=== PATIENT | female | born 1975 | race Caucasian/White ===

== ENCOUNTER 2016-05-13 09:21 | Emergency (ER) | payer BC ==
[2016-05-13] MEDS ORDERED: NS 0.9% 1000 ML* 1,000 ML IV ONE (10:56)
[2016-05-13] MEDS ORDERED: Ondansetron INJ* 2 MG/ML VIAL IV ONE (10:56)
[2016-05-13] MEDS ORDERED: Ketorolac INJ* 30 MG/ML 1 ML VIAL IV ONE (10:56)
[2016-05-13 11:14] LABS: Hematocrit 36 % (35-47); Hemoglobin 12.1 g/dl (12.0-16.0); Mean Corpuscular HGB Conc 34 g/dl (31-36); Mean Corpuscular Hemoglobin 33 pg (27-31); Mean Corpuscular Volume 96 fL (80-97); Mean Platelet Volume 9 um3 (7.4-10.4); Red Blood Count 3.72 10^6/ul (4.0-5.4); Red Cell Distribution Width 14 % (10.5-15); White Blood Count 4.4 10^3/ul (3.5-10.8)
[2016-05-13 11:18] LABS: Urine Bilirubin Negative (Negative); Urine Glucose Negative (Negative); Urine Nitrite Negative (Negative)
[2016-05-13 11:25] LABS: ALT 15 U/L (7-52); AST 18 U/L (13-39); Albumin 4.1 g/dL (3.2-5.2); Alkaline Phosphatase 37 U/L (34-104); Anion Gap 3 mmol/L (2-11); BUN/Creatinine Ratio 23.8 (8-20); Blood Urea Nitrogen 15 mg/dL (6-24); C Reactive Protein < 1.00 mg/L (< 5.00); CO2 Carbon Dioxide 31 mmol/L (22-32); Calcium 9.1 mg/dL (8.6-10.3); Chloride 102 mmol/L (101-111); EGFR Non-African American 105.8 (>60); Globulin 2.4 g/dL (2-4); Glucose 84 mg/dL (70-100); Lipase 33 U/L (11.0-82.0); Potassium 3.9 mmol/L (3.5-5.0); Sodium 136 mmol/L (133-145); Total Protein 6.5 g/dL (6.4-8.9)
--- NOTE | 2016-05-13 13:43 | RAD ---
INDICATION: Left pelvic pain COMPARISON: Pelvic sonogram November 18, 2011 TECHNIQUE: Longitudinal and transverse transvaginal scans of the pelvis were obtained. FINDINGS: Uterus: The uterus is normal in size. There are no focal masses. The uterus measures 8.0 x 4.7 x 5.3 cm. Endometrial thickness: The endometrial thickness is measured at 0.8 cm. . Free fluid: There is no significant free fluid . Ovaries: The ovaries are normal in size. The right ovary measures 3.6 x 1.4 x 2.4 cm. The left ovary measures 3.7 x 1.8 x 2.3 cm. There is a mildly complex left ovarian cyst measuring 1.9 x 1.6 x 1.4 cm. This may represent an involuting cyst. Doppler interrogation demonstrates flow to each ovary. Other: None IMPRESSION: SUSPECT SMALL INVOLUTING CYST LEFT OVARY, OTHERWISE NEGATIVE.
[2016-05-13] MEDS ORDERED: Acetaminophen TAB* 325 MG PO ONE (14:03)
[2016-05-13 14:57] VITALS: BP 108/67
--- NOTE | 2016-05-13 15:16 | ED ---
Yunior Lucero Billy, scribed for Gómez Causey MD on 05/13/16 at 0953 . Back Pain - HPI Summary HPI Summary: Patient is a 40 year-old female coming to [facility] presenting with constant left lumbar pain starting 4 days ago. She states that she felt a sharp pain at onset while standing, and has been progressively worsening since then. Pain is worse while standing, sitting, or bearing weight on the LLE. The pain has begun to wrap around to the LLQ, and the patient reports N/V this morning. She has been taking ibuprofen for the pain with no improvement. Patient reports tolerating PO during the last few days but has had decreased appetite secondary to nausea this morning. Denies UTI symptoms. Denies changes in bowel movements. - History of Current Complaint Chief Complaint: EDAbdPain Stated Complaint: LT SIDE ABD PAIN / VOMITING Time Seen by Provider: 05/13/16 09:37 Hx Obtained From: Patient Hx Last Menstrual Period: 07/07/12 Onset/Duration: Gradual Onset, Lasting Days, Still Present Timing: Constant Severity Initially: Moderate Severity Currently: Moderate Pain Intensity: 8 Pain Scale Used: 0-10 Numeric Aggravating Symptom(s): Movement, Walking Alleviating Symptom(s): Nothing Associated Signs And Symptoms: Positive: Abdominal Pain, Pain with Weight Bearing, Other - N/V. Negative: Bladder Incontinence, Bowel Incontinence - Allergies/Home Medications Allergies/Adverse Reactions: Allergies Allergy/AdvReac Type Severity Reaction Status Date / Time Citalopram [From Celexa] AdvReac Severe See Comment Verified 05/13/16 10:37 Midodrine AdvReac Severe Palpitation Verified 05/13/16 10:37 s Adhesive Tape [Plastic Tape] AdvReac Intermediate IRRITATES Verified 05/13/16 10 :37 SKIN Benzoyl Peroxide AdvReac Intermediate Pain Verified 05/13/16 10:37 Morphine AdvReac Intermediate Itching Verified 05/13/16 10:37 Naproxen AdvReac Intermediate GI UPSET, Verified 05/13/16 10:37 BURNING Oxycodone [From Percocet] AdvReac Intermediate GI UPSET, Verified 05/13/16 10:37 BURNING terrazol Allergy Intermediate See Comment Uncoded 05/13/16 10:37 PMH/Surg Hx/FS Hx/Imm Hx Endocrine/Hematology History: Reports: Hx Diabetes - GESTATIONAL ONLY Denies: Hx Thyroid Disease Cardiovascular History: Reports: Hx Hypertension - Orthostatic Hypotension, Hx Syncope - Neurocardiogenic syncope Denies: Hx Congestive Heart Failure, Hx Pacemaker/ICD Respiratory History: Reports: Hx Sleep Apnea Denies: Hx Asthma, Hx Chronic Obstructive Pulmonary Disease (COPD) GI History: Reports: Hx Gastroesophageal Reflux Disease Denies: Hx Ulcer History: Reports: Other Problems/Disorders - HSV Denies: Hx Dialysis, Hx Renal Disease Sensory History: Reports: Hx Contacts or Glasses - glasses Denies: Hx Hearing Aid Opthamlomology History: Reports: Hx Contacts or Glasses - glasses Neurological History: Reports: Hx Headaches - hx of optic neuritis 2008, headaches since 1-2 times a week, Hx Migraine, Other Neuro Impairments/ Disorders - occasional dizziness with hungry Denies: Hx Seizures Psychiatric History: Reports: Hx Anxiety - on medication, Hx Depression Denies: Hx Panic Disorder, Hx Substance Abuse - Surgical History Surgery Procedure, Year, and Place: 02/05 [facility] - . 09/07 [facility] - C- section W/TUBAL LIGATION. . gASTRIC SLEEVE AND CHOLECYTECTOMY 2005 Hx Anesthesia Reactions: No - Immunization History Date of Tetanus Vaccine: 2008 Date of Influenza Vaccine: 2012 Infectious Disease History: No Infectious Disease History: Denies: Hx Hepatitis, Hx Human Immunodeficiency Virus (HIV), History Other Infectious Disease, Traveled Outside the [place] in Last 30 Days - Family History Known Family History: Positive: Other - Breast cancer - Social History Alcohol Use: Occasionally Hx Substance Use: No Substance Use Type: Reports: None Hx Tobacco Use: Yes Smoking Status (MU): Former Smoker Review of Systems Positive: Abdominal Pain, Vomiting, Nausea Positive: Other - left lower back pain All Other Systems Reviewed And Are Negative: Yes Physical Exam Triage Information Reviewed: Yes Vital Signs On Initial Exam: Initial Vitals Temp Pulse Resp BP Pulse Ox 98.7 F 82 15 101/58 100 05/13/16 09:23 05/13/16 09:23 05/13/16 09:23 05/13/16 09:23 05/13/16 09:23 Vital Signs Reviewed: Yes Appearance: Positive: Well-Appearing, No Pain Distress Skin: Positive: Warm, Skin Color Reflects Adequate Perfusion, Dry Head/Face: Positive: Normal Head/Face Inspection Eyes: Positive: Normal Neck: Positive: Supple, Nontender Respiratory/Lung Sounds: Positive: Clear to Auscultation, Breath Sounds Present Cardiovascular: Positive: RRR Abdomen Description: Positive: Soft, Other: - LLQ tenderness Musculoskeletal: Positive: Other - Left lumb paraspinal tenderness. Negative straight leg raise. Negative pain with internal/external rotation of the left hip. Neurological: Positive: Normal Psychiatric: Positive: Normal, Affect/Mood Appropriate AVPU Assessment: Alert - Johnie Coma Scale Coma Scale Total: 15 Diagnostics - Vital Signs Vital Signs Temp Pulse Resp BP Pulse Ox 05/13/16 09:23 98.7 F 82 15 101/58 100 - Laboratory Lab Results: Lab Results 05/13/16 05/13/16 05/13/16 Range/Units 10:25 10:25 10:25 WBC 4.4 (3.5-10.8) 10^3/ul RBC 3.72 L (4.0-5.4) 10^6/ul Hgb 12.1 (12.0-16.0) g/dl Hct 36 (35-47) % MCV 96 (80-97) fL MCH 33 H (27-31) pg MCHC 34 (31-36) g/dl RDW 14 (10.5-15) % Plt Count 192 (150-450) 10^3/ul MPV 9 (7.4-10.4) um3 Neut % (Auto) 56.6 (38-83) % Lymph % (Auto) 33.2 (25-47) % [place] % (Auto) 7.5 (1-9) % Eos % (Auto) 2.1 (0-6) % Baso % (Auto) 0.6 (0-2) % Absolute Neuts (auto) 2.5 (1.5-7.7) 10^3/ul Absolute Lymphs (auto) 1.5 (1.0-4.8) 10^3/ul Absolute Monos (auto) 0.3 (0-0.8) 10^3/ul Absolute Eos (auto) 0.1 (0-0.6) 10^3/ul Absolute Basos (auto) 0 (0-0.2) 10^3/ul Absolute Nucleated RBC 0 10^3/ul Nucleated RBC % 0.1 Sodium 136 (133-145) mmol/L Potassium 3.9 (3.5-5.0) mmol/L Chloride 102 (101-111) mmol/L Carbon Dioxide 31 (22-32) mmol/L Anion Gap 3 (2-11) mmol/L BUN 15 (6-24) mg/dL Creatinine 0.63 (0.51-0.95) mg/dL Est GFR ( Amer) 136.0 (>60) Est GFR (Non-Af Amer) 105.8 (>60) BUN/Creatinine Ratio 23.8 H (8-20) Glucose 84 (70-100) mg/dL Lactic Acid (0.5-2.0) mmol/L Calcium 9.1 (8.6-10.3) mg/dL Total Bilirubin 0.50 (0.2-1.0) mg/dL AST 18 (13-39) U/L ALT 15 (7-52) U/L Alkaline Phosphatase 37 (34-104) U/L C-Reactive Protein < 1.00 (< 5.00) mg/L Total Protein 6.5 (6.4-8.9) g/dL Albumin 4.1 (3.2-5.2) g/dL Globulin 2.4 (2-4) g/dL Albumin/Globulin Ratio 1.7 (1-3) Lipase 33 (11.0-82.0) U/L Beta HCG, Quant < 0.60 mIU/mL Urine Color Yellow Urine Appearance Cloudy Urine pH 7.0 (5-9) Ur Specific [place] 1.005 L (1.010-1.030) Urine Protein Negative (Negative) Urine Ketones Negative (Negative) Urine Blood Negative (Negative) Urine Nitrate Negative (Negative) Urine Bilirubin Negative (Negative) Urine Urobilinogen Negative (Negative) Ur Leukocyte Esterase Negative (Negative) Urine Glucose Negative (Negative) 05/13/16 Range/Units 10:25 WBC (3.5-10.8) 10^3/ul RBC (4.0-5.4) 10^6/ul Hgb (12.0-16.0) g/dl Hct (35-47) % MCV (80-97) fL MCH (27-31) pg MCHC (31-36) g/dl RDW (10.5-15) % Plt Count (150-450) 10^3/ul MPV (7.4-10.4) um3 Neut % (Auto) (38-83) % Lymph % (Auto) (25-47) % [place] % (Auto) (1-9) % Eos % (Auto) (0-6) % Baso % (Auto) (0-2) % Absolute Neuts (auto) (1.5-7.7) 10^3/ul Absolute Lymphs (auto) (1.0-4.8) 10^3/ul Absolute Monos (auto) (0-0.8) 10^3/ul Absolute Eos (auto) (0-0.6) 10^3/ul Absolute Basos (auto) (0-0.2) 10^3/ul Absolute Nucleated RBC 10^3/ul Nucleated RBC % Sodium (133-145) mmol/L Potassium (3.5-5.0) mmol/L Chloride (101-111) mmol/L Carbon Dioxide (22-32) mmol/L Anion Gap (2-11) mmol/L BUN (6-24) mg/dL Creatinine (0.51-0.95) mg/dL Est GFR ( Amer) (>60) Est GFR (Non-Af Amer) (>60) BUN/Creatinine Ratio (8-20) Glucose (70-100) mg/dL Lactic Acid 0.6 (0.5-2.0) mmol/L Calcium (8.6-10.3) mg/dL Total Bilirubin (0.2-1.0) mg/dL AST (13-39) U/L ALT (7-52) U/L Alkaline Phosphatase (34-104) U/L C-Reactive Protein (< 5.00) mg/L Total Protein (6.4-8.9) g/dL Albumin (3.2-5.2) g/dL Globulin (2-4) g/dL Albumin/Globulin Ratio (1-3) Lipase (11.0-82.0) U/L Beta HCG, Quant mIU/mL Urine Color Urine Appearance Urine pH (5-9) Ur Specific Tovey (1.010-1.030) Urine Protein (Negative) Urine Ketones (Negative) Urine Blood (Negative) Urine Nitrate (Negative) Urine Bilirubin (Negative) Urine Urobilinogen (Negative) Ur Leukocyte Esterase (Negative) Urine Glucose (Negative) Result Diagrams: 05/13/16 10:25 05/13/16 10:25 Lab Statement: Any lab studies that have been ordered have been reviewed, and results considered in the medical decision making process. - Ultrasound No standard instances Ultrasound Interpretation Completed By: Radiologist - TRANSVAGINAL ULTRASOUND: SUSPECT SMALL INVOLUTING CYST LEFT OVARY, OTHERWISE NEGATIVE. Re-Evaluation - Re-Evaluation First Eval Re-Evaluation Time: 14:21 Change: Improved Back Pain Course/Dx - Course Course Of Treatment: Ms. Sadler presented with a left adnexal pain which radiated into her back/flank. it was constant and aggravated by movement. The pain was present for 3-4 days but she got nauseated today. Her W/U was negative here except for an involuting left ovarian cyst. We discussed the possibility that this has caused her pain and I recommended that she F/U if not improved in the next 1-2 days. - Diagnoses Provider Diagnoses: Ruptured ovarian cyst Discharge - Discharge Plan Condition: Stable Disposition: HOME Patient Education Materials: Ovarian Cyst (ED) Referrals: Katelyn Varner NP [Primary Care Provider] - The documentation as recorded by the Yunior hicks Billy accurately reflects the service I personally performed and the decisions made by me, Gómez Causey MD.
== END 2016-05-13 14:56 | disposition home or self-care (01) ==
LOC: ED 09:21
DX: N83.202 Unspecified ovarian cyst, left side (principal); Z87.891 Personal history of nicotine dependence; Z88.5 Allergy status to narcotic agent
CPT/HCPCS: 36415; 76830; 80053; 81003; 83605; 83690; 84702; 85025; 86140; 99282; A9270-GY; J1885; J2405

== ENCOUNTER 2016-10-02 12:11 | Emergency (ER) | payer BC ==
[2016-10-02 13:07] VITALS: BP 100/55
--- NOTE | 2016-10-02 13:33 | UC ---
Throat Pain/Nasal Juan HPI - HPI Summary HPI Summary: complaint of nasal discahrge, sinus pressure and cough that started 4-5 days ago sore throat, bilateral ear pain headache in entire head feels fatigued diarrhea for the first 2 days cough is sometimes productive cough taking emergency and childrens mucinex both daughters with similiar illness - History of Current Complaint Hx Obtained From: Patient Hx Last Menstrual Period: 09/14/16 <Alona Scott - Last Filed: 10/02/16 13:40> <Gin Moreno - Last Filed: 10/02/16 14:15> - History of Current Complaint Chief Complaint: UCRespiratory Stated Complaint: RESP ISSUE SORE THROAT EAR PAIN Time Seen by Provider: 10/02/16 13:25 - Allergies/Home Medications Allergies/Adverse Reactions: Allergies Allergy/AdvReac Type Severity Reaction Status Date / Time Citalopram [From Celexa] AdvReac Severe See Comment Verified 10/02/16 13:07 Midodrine AdvReac Severe Palpitation Verified 10/02/16 13:07 s Adhesive Tape [Plastic Tape] AdvReac Intermediate IRRITATES Verified 10/02/16 13 :07 SKIN Benzoyl Peroxide AdvReac Intermediate Pain Verified 10/02/16 13:07 Morphine AdvReac Intermediate Itching Verified 10/02/16 13:07 Naproxen AdvReac Intermediate GI UPSET, Verified 10/02/16 13:07 BURNING Oxycodone [From Percocet] AdvReac Intermediate GI UPSET, Verified 10/02/16 13:07 BURNING terrazol Allergy Intermediate See Comment Uncoded 10/02/16 13:07 Home Medications: Home Medications Magnesium 500 mg PO DAILY 10/02/16 [History Confirmed 10/02/16] PMH/Surg Hx/FS Hx/Imm Hx Previously Healthy: Yes GI/ History: Gastroesophageal Reflux Neurological History: Migraine - Surgical History Surgical History: Yes Surgery Procedure, Year, and Place: 02/05 [facility] - . [facility] - [facility]- section W/TUBAL LIGATION. . gASTRIC SLEEVE AND CHOLECYTECTOMY 2005 - Family History Known Family History: Positive: Unknown, Other - Breast cancer Negative: Hypertension, Diabetes - Social History Occupation: Employed Full-time Lives: With Family Alcohol Use: Occasionally Substance Use Type: None Smoking Status (MU): Former Smoker - Immunization History Most Recent Influenza Vaccination: 2011 Most Recent Tetanus Shot: 2004 <Alona Scott - Last Filed: 10/02/16 13:40> Review of Systems Constitutional: Fever, Chills Skin: Negative Eyes: Negative ENT: Sore Throat, Ear Ache, Nasal Discharge Respiratory: Cough Cardiovascular: Negative Gastrointestinal: Negative Genitourinary: Negative Motor: Negative Neurovascular: Negative Musculoskeletal: Negative Neurological: Headache Psychological: Negative All Other Systems Reviewed And Are Negative: Yes <Alona Scott - Last Filed: 10/02/16 13:40> Physical Exam Triage Information Reviewed: Yes Appearance: No Pain Distress, Well-Nourished Vital Signs: Initial Vital Signs Temp 98.0 F 10/02/16 13:01 Pulse 75 10/02/16 13:01 Resp 18 10/02/16 13:01 BP 100/55 10/02/16 13:01 Pulse Ox 97 10/02/16 13:01 Vital Signs Reviewed: Yes Eyes: Positive: Conjunctiva Clear ENT: Positive: Pharyngeal erythema, Nasal congestion, Nasal drainage, TM bulging. Negative: TM red Neck: Positive: No Lymphadenopathy Respiratory: Positive: Lungs clear, Normal breath sounds, No respiratory distress, No accessory muscle use Cardiovascular: Positive: RRR, No Murmur, Pulses Normal, Brisk Capillary Refill Abdomen Description: Positive: Nontender, Soft Bowel Sounds: Positive: Present Musculoskeletal: Positive: No Edema Neurological: Positive: Alert Psychological Exam: Normal Skin Exam: Normal <Alona Scott - Last Filed: 10/02/16 13:40> Vital Signs: Initial Vital Signs Temp 98.0 F 10/02/16 13:01 Pulse 75 10/02/16 13:01 Resp 18 10/02/16 13:01 BP 100/55 10/02/16 13:01 Pulse Ox 97 10/02/16 13:01 <Gin Moreno - Last Filed: 10/02/16 14:15> Throat Pain/Nasal Course/Dx - Differential Dx/Diagnosis Differential Diagnosis/HQI/PQRI: Pharyngitis, Tonsillitis, URI Provider Diagnoses: URI <Alona Scott - Last Filed: 10/02/16 13:40> Discharge <Alona Scott - Last Filed: 10/02/16 13:40> <Gin Moreno - Last Filed: 10/02/16 14:15> - Discharge Plan Condition: Stable Disposition: HOME Prescriptions: Benzonatate CAP* [Tessalon 100 MG CAP*] 100 mg PO TID #30 cap Fluticasone NASAL SPRAY 50MCG* [Flonase NASAL SPRAY 50MCG*] 2 spray BOTH NARES DAILY #1 btl Patient Education Materials: Upper Respiratory Infection (ED) Forms: *Work Release Referrals: Katelyn Varner NP [Primary Care Provider] - Additional Instructions: Increase fluids and rest Take acetaminophen or ibuprofen for fever or pain Please review your discharge instructions. If your symptoms do not improve please call your primary care provider or return to urgent care. Attestation Statement User Type: Provider - I was available for consult. This patient was seen by the BRITTANY. The patient was not presented to, seen by, or examined by me. -[place] <Gin Moreno - Last Filed: 10/02/16 14:15>
== END 2016-10-02 13:46 | disposition home or self-care (01) ==
LOC: UCEAST 12:11
DX: J06.9 Acute upper respiratory infection, unspecified (principal); Z87.891 Personal history of nicotine dependence
CPT/HCPCS: 99212; G0463

== ENCOUNTER 2017-05-15 11:02 | Day surgery (SDC) | payer BC ==
[~2017-05-15 11:02] MED LIST: Buffered Lidocaine 0.9% SYRIN* 5 ML/SYR SYRINGE INTRADERM ONE; Buffered Lidocaine 0.9% SYRIN* 5 ML/SYR SYRINGE ONE
[2017-05-15] MEDS ORDERED: Metoclopramide IV* 5 MG/ML 2 ML VIAL IV PRN (12:50)
[2017-05-15] MEDS ORDERED: Naloxone* 0.4 MG/ML 1 ML VIAL IV PRN (12:50)
[2017-05-15] MEDS ORDERED: Acetaminophen TAB* 325 MG PO PRN (12:50)
[2017-05-15] MEDS ORDERED: fentaNYL* 50 MCG/ML 2 ML VIAL (100 MCG VIAL) ONE (12:57)
[2017-05-15] MEDS ORDERED: Midazolam concentrated* 5 MG/ML 1 ml VIAL ONE (12:57)
[2017-05-15] MEDS ORDERED: Ondansetron INJ* 2 MG/ML VIAL ONE (14:09)
[2017-05-15] MEDS ORDERED: Lidocaine 2% PF * 5 ML VIAL ONE (14:09)
[2017-05-15] MEDS ORDERED: Propofol* 10 MG/ML 20 ML BTL IV PUSH ONE ×2 (14:09)
[2017-05-15] MEDS ORDERED: Ketorolac INJ* 30 MG/ML 1 ML VIAL ONE (14:09)
[2017-05-15 15:13] VITALS: BP 112/65
[2017-05-15] MEDS ORDERED: Bupivacaine 0.25% SDV* 30 ML ONE (15:21)
--- NOTE | 2017-05-18 09:18 | OP ---
DATE OF OPERATION: 05/15/17 - [facility] DATE OF : 79 SURGEON: Jericho Carlos MD. ASSISTANTS: GAVIN Green. ANESTHESIOLOGIST: Jessie Boateng MD ANESTHESIA: General. PRE-OP DIAGNOSES: 1. Left volar wrist ganglion cyst. 2. Left carpal tunnel syndrome. POST-OP DIAGNOSES: 1. Left volar wrist ganglion cyst. 2. Left carpal tunnel syndrome. OPERATIVE PROCEDURES: 1. Left open carpal tunnel release. 2. Excision of left volar wrist ganglion cyst. INDICATIONS: Marie is 41. She has had progressive symptoms related to carpal tunnel syndrome. Additionally, she had a volar wrist ganglion cyst, which is causing her quite a bit of discomfort with flexion and extension of the wrist. I have talked her about her treatment option. She had wanted to proceed with surgery. She understood the risks and benefits including the risk of cyst recurrence. ESTIMATED BLOOD LOSS: 2 mL. COMPLICATIONS: None. FINDINGS: There was a volar wrist ganglion cyst coming off of the volar wrist capsule just over the volar aspect of the scapholunate joint. DESCRIPTION OF PROCEDURE: Marie was seen in the preoperative holding area. The correct side, site and the procedure were identified. We came back to the operating room. We had a time out time-out. I infiltrated the operative area with 0.25% plain Marcaine. The arm was then prepped and draped in the usual fashion. I began by exsanguinating the arm with the Esmarch and the tourniquet was inflated to 250 mmHg. I made a 3 cm incision in the standard location for an open carpal tunnel release. Dissection was carried down to the subcutaneous tissue and palmar fascia. The transverse carpal transverse carpal ligament was released just off the radial aspect of hook of the hamate. The release was extended distally and proximally with tenotomy scissors under direct visualization. Once the entirety of the transverse carpal ligament had been released as well as the distal end of the antebrachial fascia, there was absolutely no compression on the median nerve. I went ahead and irrigated out the wounds. The skin was closed with 4-0 nylon suture. I then made a lazy S incision right over the volar radial cyst over the ganglion cyst. Dissection was carried down to the cyst. I came proximally and identified the radial artery, which was draping over the volar radial aspect of the cyst. The radial artery was mobilized and the perforators cauterized to mobilize the artery. Once the artery was mobilized and retracted radially I went ahead and a marginal excision of the cyst. The cyst was kept intact as I dissected it free until I identified the stalk where it came off of the the volar capsule just off the volar aspect of the scapholunate joint. The cyst was then amputated at that site and the tract for the cyst was cauterized with the Bovie as was the remainder of the volar wrist capsule. The wound was then irrigated out. The skin was closed with 4-0 nylon suture. The wounds were dressed with Xeroform, 4x4s, sterile Webril and a cock-up wrist splint was applied. She was then taken to the recovery room in stable condition. [id number]/CPS #: [id number] RONNIE
== END 2017-05-15 15:30 | disposition home or self-care (01) ==
LOC: OREAST 11:02
PROVIDERS: ATTEND Orthopaedic Surgery Hand Surgery
DX: M67.432 Ganglion, left wrist (principal); G56.02 Carpal tunnel syndrome, left upper limb; Z87.891 Personal history of nicotine dependence; F41.8 Other specified anxiety disorders; I95.1 Orthostatic hypotension; R55 Syncope and collapse; R00.2 Palpitations; R00.0 Tachycardia, unspecified
CPT/HCPCS: 88304; J1885; J2250; J2405; J2704; J3010

== ENCOUNTER 2017-06-06 05:43 | Emergency (ER) | payer BC, OTHER ==
[2017-06-06] MEDS ORDERED: Tenofovir/Emtricitabine(*) TAB PO ONE ×2 (06:15→09:00)
[2017-06-06] MEDS ORDERED: Ondansetron ODT TAB* 4 MG PO ONE (06:15)
[2017-06-06] MEDS ORDERED: Raltegravir* 400 MG TAB PO ONE ×2 (06:15→09:00)
--- OUTSIDE RECORDS SUMMARY | 2017-06-06 06:19 | XMS REPORT ---
:1975 External Reference #:[id number] Author Organization [employer] [facility] [employer] Address [address] [address] Phone [phone] Care Team Providers Name Role Phone Katleyn Varner FNP Primary Care Physician Unavailable Payers Type Date Identification Numbers Payment Provider Subscriber Commercial Effective: Policy Number: [id number] [employer] Marie aSdler 2017 PayID: [id number] [address] [address] [place] [address] Problems Date Description Provider Status Onset: 07/08/2013 Syncope and collapse Maciej Sanchez M.D. Active Onset: 07/08/2013 Malaise and fatigue Maciej Sanchez M.D. Active Onset: 07/08/2013 Palpitations Maciej Sanchez M.D. Active Onset: 07/08/2013 Tachycardia Maciej Sanchez M.D. Active Onset: 08/10/2013 Orthostatic hypotension Maciej Sanchez M.D. 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 Cigarette Use Former Cigarette Smoker Cigarette Use Quit 3 Years Ago ETOH Use Occasionally consumes wine Recreational Drug Use Denies Drug Use Smoking Patient is a former smoker quit in 2006, 1PPD Daily Caffeine Consumes on average 2 cups of regular coffee per day Exercise Type/Frequency Does not exercise Allergies, Adverse Reactions, Alerts Date Description Reaction Status Severity Comments 04/21/2009 Benzoyl Peroxide active [place], welts 07/08/2013 Morphine Urticaria active 07/08/2013 Naproxen Nausea and Vomiting active 10/27/2013 Midodrine active rash 11/10/2013 Fludrocortisone limb heavy,heart pound active per patient 11/10/2013 Celexa limbs heavy,fatigue,palp active per patient Medications Medication Date Status Form Strength Qnty SIG Indications Ordering Provider Tramadol HCL 05/15 Active Tablets 50mg 30tab 1-2 tablet s by mouth Carlos, every 6 MD hours as needed pain Fioricet 12/11 Active Capsules 50-300-40 14cap take 1 to 2 Lindsey /2015 mg s by mouth MD Jeanna for severe migraine. may repeat in 4 hours. do not use more than 2x/week. do not use with tylenol. Rizatriptan 12/11 Active Tablets 5mg 9tabs 1 at onset Lindsey Benzo Dispers of MD Jeanna migraine. may repeat in 2 hours if needed. do not use more than 2x/week and don't use sumatriptan within 24 h Zomig 12/10 Active Solution 5mg 12uni 1 spray in G43.109 ts one nostril MD Jeanna at onset of aura/headac he. may repeat x1 in 2 hours if needed. don't use sumatriptan within 24 hours. Reglan 12/10 Active Tablets 5mg 30tab 1 by mouth G43.109 Lindsey s as needed MD Jeanna for nausea/migr erik. May repeat x1 in 6 hours if needed Compression 08/30 Active Misc 2Pair thigh high 458.0 Qutaybeh Stockings /2013 s closed toe S. light Maghaydah compression , M.D. Nexium Active Capsules DR 40mg 30cap 1 po daily Unknown /0000 s Paxil Active Tablets 10mg 1 by mouth Unknown /0000 every day Womens Multi Active Capsules daily Unknown / Vitamin B-12 Active Tablets 1000mcg 1 tablet po Unknown / every three days Ketorolac Active Tablets 10mg take 1 by Unknown Tromethamine /0000 mouth every 8 hours as needed for migraine. take with food. Sumatriptan Active Tablets 50mg take 1 at Unknown Succinate /0000 onset of migraine. may repeat within 2 hours if needed. max 2x/week. max daily dose 100mg Tylenol Extra Active Tablets 500mg 2 by mouth Unknown Strength /0000 as needed Magnesium Active Capsules 500mg 1 by mouth Unknown / every day Vitamin B2 Active 400mg 400mg qd Unknown Topamax 12/10 Hx Tablets 25mg 60tab 1 by mouth G43.109 Lindsey s at night. MD Jeanna - If 12/30 tolerating ok after one week increase to 2 tablets at night. Fludrocortisone 10/28 Hx Tablets 0.1mg 30tab Take 1 tab 458.0 Qutaybeh Acetate s po daily S. - Daniel 11/09 Henrik /2013 Midodrine HCL 08/13 Hx Tablets 2.5mg 30tab one by Qutafrancis s mouth every S. - day haydah 10/1510/25/13 Henrik /2013 Hold Z Pack 11/01 Hx Tablets 250mg 6tabs 2 today 1 465.8 Sivananda qd 4 days , [place], - 05/14 Amoxicillin 05/15 Hx Capsules 500mg 28cap 2 bid for 7 466.0 Sen /Fco s Roel Gomez M.D.,[facility] 05/16 Robitussin With 05/15 Hx Solution 8Oz 1-2 tsp qid 466.0 Sen Crowell akosuan Roel Galvan M.D.,FACP 05/14 Pre-Antonia 00/00 Hx Tablets qd Unknown / - 07/07 Meclizine HCL 00 Hx Tablets 25mg 60tab Unknown /0000 s - 07/06 Loratadine Hx Tablets 10mg 30tab 1 by mouth Unknown /0000 s every day - 07/06 Paxil 00/00 Hx Suspension 10mg/5ML Unknown /0000 - 06/29 Lorazepam 00/00 Hx Tablets 0.5mg 30tab Unknown /0000 s - 07/06 Valacyclovir HCL 00/00 Hx Tablets 1gm 12tab take two Unknown /0000 s tablets by - mouth and 07/06 repeat 12 hours as directed Salt Tablets 00/ Hx 2-3 tablet Unknown /0000 po daily as - needed( 12/09 since off of fludrocorti sone) Magnesium 00 Hx Tablets 250mg 1-2 tabs by Unknown /0000 mouth every - day ( 12/10 taking 150mg) Excedrin 00 Hx Tablets 250-250-6 as needed Unknown Migraine /0000 5mg - 12/09 Ibuprofen 00/00 Hx Capsules 200mg as needed Unknown /0000 - 12/09 Immunizations CPT Code Status Date Vaccine Lot # [id number] Given 01/07/2010 Influenza Virus 3Yrs & Over Vital Signs Date Vital Result Comment 05/27/2017 Height 65 inches 5'5" Weight 165.00 lb Heart Rate 74 /min Respiratory Rate 14 /min Body Temperature 97.3 F Pain Level 5 BMI (Body Mass Index) 27.5 kg/m2 05/02/2017 Height 65 inches 5'5" Heart Rate 80 /min BP Systolic 110 mmHg BP Diastolic 60 mmHg Respiratory Rate 16 /min Body Temperature 98.2 F Pain Level 0 04/04/2017 Height 65 inches 5'5" Weight 165.00 lb Heart Rate 56 /min BP Systolic 116 mmHg BP Diastolic 80 mmHg Respiratory Rate 20 /min Body Temperature 97.7 F Pain Level 0 BMI (Body Mass Index) 27.5 kg/m2 01/01/2016 Height 65 inches 5'5" Weight 156.00 lb Heart Rate 72 /min BP Systolic Sitting 110 mmHg BP Diastolic Sitting 62 mmHg Respiratory Rate 14 /min BMI (Body Mass Index) 26.0 kg/m2 12/11/2015 Height 65 inches 5'5" Weight 156.00 lb Heart Rate 84 /min BP Systolic Sitting 104 mmHg BP Diastolic Sitting 62 mmHg Respiratory Rate 14 /min O2 % BldC Oximetry 98 % BMI (Body Mass Index) 26.0 kg/m2 11/14/2015 Height 65 inches 5'5" Weight 157.00 lb Heart Rate 68 /min BP Systolic Sitting 108 mmHg BP Diastolic Sitting 62 mmHg Respiratory Rate 14 /min BMI (Body Mass Index) 26.1 kg/m2 05/26/2014 Height 65 inches 5'5" Weight 149.00 lb with shoes Heart Rate 70 /min BP Systolic Sitting 100 mmHg LA reg cuff BP Diastolic Sitting 60 mmHg LA reg cuff Respiratory Rate 16 /min BMI (Body Mass Index) 24.8 kg/m2 11/10/2013 Height 65 inches 5'5" Weight 149.75 lb with shoes Heart Rate 74 /min BP Systolic Sitting 102 mmHg LA reg cuff BP Diastolic Sitting 60 mmHg LA reg cuff BP Systolic Lying Down 92 mmHg LA reg cuff BP Diastolic Lying Down 60 mmHg LA reg cuff Respiratory Rate 16 /min BMI (Body Mass Index) 24.9 kg/m2 10/28/2013 Height 65 inches 5'5" Weight 147.00 lb with shoes Heart Rate 76 /min BP Systolic Sitting 90 mmHg LA reg cuff BP Diastolic Sitting 60 mmHg LA reg cuff BP Systolic Standing 80 mmHg LA reg cuff BP Diastolic Standing 52 mmHg LA reg cuff Respiratory Rate 16 /min BMI (Body Mass Index) 24.5 kg/m2 08/30/2013 Height 65 inches 5'5" Weight 154.75 lb without shoes Heart Rate 78 /min BP Systolic Sitting 110 mmHg L arm with reg cuff BP Diastolic Sitting 70 mmHg L arm with reg cuff BP Systolic Standing 100 mmHg BP Diastolic Standing 60 mmHg Respiratory Rate 18 /min BMI (Body Mass Index) 25.7 kg/m2 08/13/2013 Height 65 inches 5'5" Heart Rate 80 /min BP Systolic Sitting 120 mmHg BP Diastolic Sitting 60 mmHg 07/08/2013 Height 65 inches 5'5" Weight 155.00 lb Heart Rate 64 /min BP Systolic 110 mmHg right arm, reg cuff BP Diastolic 66 mmHg right arm, reg cuff BP Systolic Sitting 100 mmHg left arm, reg cuff BP Diastolic Sitting 64 mmHg left arm, reg cuff BP Systolic Standing 94 mmHg left arm, reg cuff BP Diastolic Standing 62 mmHg left arm, reg cuff Respiratory Rate 16 /min BMI (Body Mass Index) 25.8 kg/m2 05/14/2010 Weight 243.00 lb Heart Rate 76 /min BP Systolic Sitting 114 mmHg BP Diastolic Sitting 70 mmHg 01/17/2010 Weight 244.00 lb Heart Rate 84 /min BP Systolic Sitting 110 mmHg BP Diastolic Sitting 68 mmHg 11/01/2009 Weight 237.00 lb BP Systolic Sitting 100 mmHg BP Diastolic Sitting 60 mmHg 05/15/2009 Weight 256.00 lb Heart Rate 96 /min BP Systolic Sitting 118 mmHg BP Diastolic Sitting 68 mmHg Body Temperature 98.6 F 04/21/2009 Height 66.25 inches 5'6.25" Weight 256.00 lb Heart Rate 112 /min BP Systolic Sitting 130 mmHg BP Diastolic Sitting 60 mmHg BMI (Body Mass Index) 41.0 kg/m2 Results Test Date Test Result H/L Range Note Laboratory test 05/15/2017 Surgical Pathology SEE RESULT BELOW 1, 2 finding CBC Auto Diff 05/01/2017 White Blood Count 4.2 10^3/uL 3.5-10.8 Red Blood Count 4.02 10^6/uL 4.0-5.4 Hemoglobin 13.1 g/dL 12.0-16.0 Hematocrit 39 % 35-47 Mean Corpuscular Volume 98 fL High 80-97 Mean Corpuscular Hemoglobin 33 pg High 27-31 Mean Corpuscular HGB Conc 33 g/dL 31-36 Red Cell Distribution Width 15 % 10.5-15 Platelet Count 226 10^3/uL 150-450 Mean Platelet Volume 9 um3 7.4-10.4 Abs Neutrophils 2.3 10^3/uL 1.5-7.7 Abs Lymphocytes 1.4 10^3/uL 1.0-4.8 Abs Monocytes 0.3 10^3/uL 0-0.8 Abs Eosinophils 0.1 10^3/uL 0-0.6 Abs Basophils 0 10^3/uL 0-0.2 Abs Nucleated RBC 0 10^3/uL Granulocyte % 54.8 % 38-83 Lymphocyte % 33.9 % 25-47 Monocyte % 7.5 % 1-9 Eosinophil % 2.8 % 0-6 Basophil % 1.0 % 0-2 Nucleated Red Blood Cells % 0 Comp Metabolic Panel 05/01/2017 Sodium 137 mmol/L 133-145 Potassium 4.0 mmol/L 3.5-5.0 Chloride 101 mmol/L 101-111 Co2 Carbon Dioxide 31 mmol/L 22-32 Anion Gap 5 mmol/L 2-11 Glucose 91 mg/dL 70-100 Blood Urea Nitrogen 15 mg/dL 6-24 Creatinine 0.71 mg/dL 0.51-0.95 BUN/Creatinine Ratio 21.1 High 8-20 Calcium 9.6 mg/dL 8.6-10.3 Total Protein 6.8 g/dL 6.4-8.9 Albumin 4.6 g/dL 3.2-5.2 Globulin 2.2 g/dL 2-4 Albumin/Globulin Ratio 2.1 1-3 Total Bilirubin 0.50 mg/dL 0.2-1.0 Alkaline Phosphatase 41 U/L 34-104 Alt 17 U/L 7-52 Ast 17 U/L 13-39 Egfr Non- 91.6 >60 Egfr 117.9 >60 3 Lipid Profile (Trig/Chol/HDL) 05/01/2017 Triglycerides 89 mg/dL 4 Cholesterol 168 mg/dL 5 HDL Cholesterol 93.1 mg/dL 6 LDL Cholesterol 57 mg/dL 7 Iron & Iron Binding Capacity 05/01/2017 Iron 136 g/dL 50-212 Unsaturated Iron Binding 260 g/dL Total Iron Binding Capacity 396 g/dL 250-450 % Iron Saturation 34 % 15-55 Laboratory test finding 05/01/2017 Ferritin 15.3 ng/mL 11-307 Folate > 20.00 ng/mL >3.99 Vitamin B12 709 pg/mL 180-914 8 Vitamin D Total 25(Oh) 27.7 ng/mL 20-50 Vitamin B1 (Whole Blood) 130 nmol/L 70-180 9 Vitamin E Level 12.6 mg/L 5.5 - 17.0 10 Laboratory test finding 11/08/2013 Ferritin 26.0 ng/mL 11-307 Vitamin B12 534 pg/mL 180-914 11 Folate > 20.00 ng/mL >3.99 Iron & Iron Binding Capacity 11/08/2013 Iron 139 g/dL 50-212 Unsaturated Iron Binding 144 g/dL Total Iron Binding Capacity 283 g/dL 250-450 % Iron Saturation 49 % 15-55 Comp Metabolic Panel 11/08/2013 Sodium 137 mmol/L 133-145 Potassium 3.9 mmol/L 3.7-5.6 Chloride 101 mmol/L 101-111 Co2 Carbon Dioxide 33 mmol/L High 22-32 Anion Gap 3 mmol/L 2-11 Glucose 83 mg/dL 70-100 Blood Urea Nitrogen 14 mg/dL 6-24 Creatinine 0.67 mg/dL 0.51-0.95 BUN/Creatinine Ratio 20.9 High 8-20 Calcium 9.3 mg/dL 8.6-10.3 Total Protein 6.5 g/dL 6.4-8.9 Albumin 4.5 g/dL 3.2-5.2 Globulin 2.0 g/dL 2-4 Albumin/Globulin Ratio 2.3 1-3 Total Bilirubin 0.60 mg/dL 0.2-1.0 Alkaline Phosphatase 38 U/L 34-104 Alt 16 U/L 7-52 Ast 14 U/L 13-39 Egfr Non- 99.6 >60 Egfr 128.1 >60 12 CBC Auto Diff 11/08/2013 White Blood Count 4.3 10^3/uL Low 4.8-10.8 Red Blood Count 3.85 10^6/uL Low 4.0-5.4 Hemoglobin 12.6 g/dL 12.0-16.0 Hematocrit 37 % 35-47 Mean Corpuscular Volume 96 fL 80-97 Mean Corpuscular Hemoglobin 33 pg High 27-31 Mean Corpuscular HGB Conc 34 g/dL 31-36 Red Cell Distribution Width 14 % 10.5-15 Platelet Count 198 10^3/uL 150-450 Mean Platelet Volume 9 um3 7.4-10.4 Abs Neutrophils 1.9 10^3/uL 1.5-7.7 Abs Lymphocytes 1.9 10^3/uL 1.0-4.8 Abs Monocytes 0.3 10^3/uL 0-0.8 Abs Eosinophils 0.1 10^3/uL 0-0.6 Abs Basophils 0 10^3/uL 0-0.2 Abs Nucleated RBC 0 10^3/uL Granulocyte % 44.3 % 38-83 Lymphocyte % 45.0 % 25-47 Monocyte % 7.5 % 1-9 Eosinophil % 2.4 % 0-6 Basophil % 0.8 % 0-2 Nucleated Red Blood Cells % 0.1 Human Papilloma Virus 10/14/2012 Human Papillomavirus Source See Comment 13 Human Papillomavirus High Risk Negative Negative 14 Cytology 10/13/2012 Cy RUN DATE: 10/14/ <SEE 15 NOTE> Cytology 11/02/2010 Cytology <SEE 16 NOTE> Comp Metabolic Panel 05/14/2010 Sodium 138 mmol/L 135-145 Potassium 4.2 mmol/L 3.5-5.0 Chloride 100 mmol/L Low 101-111 Co2 (Carbon Dioxide) 30.0 mmol/L 22-32 Anion Gap 8.0 mmol/L 2-11 17 Glucose 74 mg/dL 70-100 BUN 13 mg/dL 6-24 Creatinine 0.60 mg/dL 0.50-1.40 One Over Creatinine 1.60 BUN/Creatinine Ratio 21.7 High 8-20 Calcium 9.3 mg/dL 8.1-9.9 Total Protein 6.6 GM/DL 6.2-8.1 Albumin 4.6 GM/DL 3.6-5.4 Globulin 2.0 GM/DL 2-4 Albumin/Globulin Ratio 2.3 1-3 Bilirubin Total 0.6 mg/dL 0.4-1.5 18 Alkaline Phosphatase 58 U/L 30-110 Alt (SGPT) 19 U/L 14-54 Ast (Sgot) 17 U/L 12-42 eGFR Non- 115.9 > 60 eGFR 149.0 > 60 19 CBC With Electronic Diff 05/14/2010 White Blood Count 5.2 CUMM 4.8-10.8 Red Cell Count 3.97 CUMM Low 4.2-5.4 Hemoglobin 13.0 g/dL 12.0-16.0 Hematocrit 38 % 35-47 Mean Corpuscular Volume 95 um3 79-97 Mean Corpuscular Hemoglob 33 pg High 27-31 Mean Corpuscular HGB Cone 34 g/dL 32-36 Redcell Distribution WDTH 14 % 10.5-15 Platelet Count 228 CUMM 150-450 Mean Platelet Volume 9.6 um3 7.4-10.4 Gran % 48.7 % 38-83 Lymph % 39.2 % 25-47 Mononuclear % 8.6 % 1-9 Eosinophil % 3.1 % 0-6 Basophil % 0.4 % 0-2 Abs Lymphs 2.0 1.0-4.8 Abs Mononuclear 0.4 0-0.8 Absolute Neutrophil Count 2.5 1.5-7.7 Abs Eosinophils 0.2 0-0.6 Abs Basophils 0 0-0.2 Laboratory test finding 05/14/2010 Hemoglobin A1c 5.6 % Less Than 6.0 20 TSH 1.43 MIU/ML 0.34-5.60 Thyroxine Free 0.73 NG/ML 0.61-1.24 1 [id number] 2 SEE RESULT BELOW Name: ERICAMARIE M : [address]: Jericho Carlos MD Acct: [id number] Unit: [id number] AGE: 41 Location: [facility] Re05/15/17 SEX: F Status: EMIGDIO SDC SPEC: [id number] BRENT: 05/15/17-[address]: Jericho Carlos MD REQ: [id number] RECD: 05/15/17 STATUS: SOUT _ ORDERED: LEVEL 3 COMMENTS: [id number] FINAL DIAGNOSIS Left wrist, excision: -- Ganglion cyst. PRE-OPERATIVE DIAGNOSIS Left volar wrist ganglion, left carpal tunnel syndrome GROSS DESCRIPTION The specimen is received in formalin labeled, Ganglion Cyst Left Wrist, and consists of a 1.3 by up to 0.8 x 0.6 cm white-pink unilocular cystic structure containing blood-tinged translucent mucus, which is inked, serially sectioned and entirely submitted in one cassette. Signed (signature on file) Brandy Jensen MD 1416 END OF REPORT * ML=Testing performed at Main Lab DEPARTMENT OF PATHOLOGY, [address] [place] [address] Ck Vera M.D. Director [facility] # [id number] 3 Because ethnic data is not always readily available, this report includes an eGFR for both -Americans and non- Americans. The National Kidney Disease Education Program (NKDEP) does not endorse the use of the MDRD equation for patients that are not between the ages of 18 and 70, are , have extremes of body size, muscle mass, or nutritional status, or are non- or non-. According to the National Kidney Foundation, irrespective of diagnosis, the stage of the disease is based on the level of kidney function: Stage Description GFR(mL/min/1.73 m(2)) 1 Kidney damage with normal or decreased GFR 90 2 Kidney damage with mild decrease in GFR 60-89 3 Moderate decrease in GFR 30-59 4 Severe decrease in GFR 15-29 5 Kidney failure <15 (or dialysis) 4 Desirable: <150 Borderline High: 150-199 High: 200-499 Very High: >500 5 Desirable: <200 Borderline High: 200-239 High: >239 6 Low: <40 Desirable: 40-60 High: >60 7 Desirable: <100 Near Optimal: 100-129 Borderline High: 130-159 High: 160-189 Very High: >189 8 Normal Range 180 to 914 Indeterminate Range 145 to 180 Deficient Range <145 9 ADDITIONAL INFORMATION This test was developed and its performance characteristics determined by [facility] in a manner consistent with CLIA requirements. This test has not been cleared or approved by the U.S. Food and Drug Administration. Test Performed by: [facility] - [address] [address] 10 ADDITIONAL INFORMATION This test was developed and its performance characteristics determined by [facility] in a manner consistent with CLIA requirements. This test has not been cleared or approved by the U.S. Food and Drug Administration. Test Performed by: [facility] - [address] [address] 11 Normal Range 180 to 914 Indeterminate Range 145 to 180 Deficient Range <145 12 Because ethnic data is not always readily available, this report includes an eGFR for both -Americans and non- Americans. The National Kidney Disease Education Program (NKDEP) does not endorse the use of the MDRD equation for patients that are not between the ages of 18 and 70, are , have extremes of body size, muscle mass, or nutritional status, or are non- or non-. According to the National Kidney Foundation, irrespective of diagnosis, the stage of the disease is based on the level of kidney function: Stage Description GFR(mL/min/1.73 m(2)) 1 Kidney damage with normal or decreased GFR 90 2 Kidney damage with mild decrease in GFR 60-89 3 Moderate decrease in GFR 30-59 4 Severe decrease in GFR 15-29 5 Kidney failure <15 (or dialysis) 13 RESULT: Ectocervical/Endocervical 14 For types 16, 18, 31, 33, 35, 39, 45, 51, 52, 56, 58, 59 and 68. Test Performed by: [facility] - [address] [address] [place] Worker Helper: Robert Rinaldi III, M.D. 15 RUN DATE: 10/14/12 [facility] LAB LIVE PAGE 1 RUN TIME: [address] [place] [address] Specimen Inquiry Name: MARIE SADLER : [address]: Oralia Rodriguez DISPATCHER CHIE[employer] OIL Acct: [id number] Unit: [id number] AGE: 36 Location: [facility] Re10/13/12 SEX: F Status: REG REF SPEC: [id number] BRENT: 10/13/12-[address]: Oralia Rodriguez NP REQ: [id number] RECD: 10/13/125 STATUS: ANA CUELLAR DR: Sen Lindsey MD _ ORDERED: IMAGE ANALYSIS, HPV / Thin Prep FINAL DIAGNOSIS Negative for Intraepithelial lesion or Malignancy COMMENTS: Specimen sent to [facility] [employer] in [place], [place] on 10/14/12 by [id number] at 0842. Results will be reported separately. A. Ectocervical/Endocervical Specimen Adequacy: Satisfactory of evaluation Transformation zone component identified Patient Information: HPV: High risk HPV DNA testing regardless of pap results. Actual Specimen Date: 10/13/12 Last Menstrual Date: 09/21/12 Cautery: N IUD: N Lesion, grossly demonstrate: N Radiation Y/N? N ?: N Post Menopausal?: N Hysterectomy?: N Previous Abnormal Pap Smears?:N Signed (signature on file) MANISH Vazquez (ASCP) 10/14/12 0927 This Pap test was evaluated with the assistance of the ThinPrep Test Imaging System. Due to cytologic findings at the remote sensing advisor microscope, comprehensive manual rescreening by a Electro Mechanic may be required. The Pap Smear is a screening test designed to aid in the detection of premalignant and malignant conditions of the uterine cervix. It is not a diagnostic procedure and should not be used as the sole means of detecting cervical cancer. Both false- positive and false- negative reports do occur. Depending on your risk status, a Pap smear shoudl be obtained and evaluated every 1-3 years. END OF REPORT * ML=Testing performed at Main Lab DEPARTMENT OF PATHOLOGY, [facility] [employer] [place], [place] [address] Ck Vera M.D. Director [facility] Permit #[id number] RUN DATE: 10/14/12 [facility] LAB LIVE PAGE 1 RUN TIME: 926 [facility] [employer] [place], [place] [address] Specimen Inquiry Patient: MARIE SADLER [id number] (Continued) 16 ---- RUN DATE: 11/05/10 [facility] NMI LIVE PAGE 1 RUN TIME: 1243 Specimen Inquiry RUN USER: INTERFACE -- Name: MARIE SADLER Status: REG REF Re11/02/10 Age/Sex: 35/F Unit#: [id number] Location: [facility] : [birth year] -- Specimen: [id number] SOUT Spec Date: 11/02/[address]: Oralia kingsley NP Spec Type: CYTOLOGY Received: 11/05/10-1019 Copies to: Sen garcia MD SOURCE ECTOCERVICAL/ENDOCERVICAL Thin Prep with Reflex HPV Test PATIENT INFORMATION ACTUAL COLLECTION DATE: 11/02/10 ? No POST MENOPAUSAL? No HYSTERECTOMY? No PREVIOUS ABNORMAL PAP SMEARS No LAST MENSTRUAL PERIOD: 10/18/10 ADEQUACY OF SPECIMEN Satisfactory for evaluation * Transformation zone component identified * DIAGNOSIS NEGATIVE FOR INTRAEPITHELIAL LESION OR MALIGNANCY * NOTE Specimen sent to [employer] in [place], [place] on 11/05/10 by DB at 1142. Results will be reported separately in an addendum. This Pap test was evaluated with the assistance of the Cashsquare[employer] Pap Test Imaging System. The Pap Smear is a screening test designed to aid in the detection of premalign ant and malignant conditions of the uterine cervix. It is not a diagnostic procedure a nd should not be used as the sole means of detecting cervical cancer. Both false- positiv e and false-negative reports do occur. Depending on your risk status, a Pap smear isabella uld be obtained and evaluated every one to three years. -- DEPARTMENT OF PATHOLOGY, [address] [place] [address] [facility] Permit #[id number] Ck Vera M.D. Director Angeline Echols M.D. Mold Puller Dir davies -- -- RUN DATE: 11/05/10 [facility] NMI LIVE PAGE 2 RUN TIME: 1243 Specimen Inquiry RUN USER: INTERFACE -- Name: MARIE SADLER Status: REG REF Re11/02/10 Age/Sex: 35/F Unit#: [id number] Location: [facility] : [birth year] -- -- CONTINUED -- Final Interpretation electronically signed by: Vu BERUMEN([facility]) 11/05/10 124 2 -- -- DEPARTMENT OF PATHOLOGY, [address] [place] [address] [facility] Permit #[id number] Ck Vera M.D. Director Angeline Echols M.D. Mold Puller Dir samson -- 17 Anion gap measurement may be of limited value in the presence of any alkalosis, especially in a combined acid base disorder. . 18 A metabolite of Naproxen, O-desmethylnaproxen, has been shown to interfere with the Jendrassik-Raymundo method for measuring total bilirubin. Samples from patients who have taken Naproxen have shown spurious elevation in total bilirubin levels. 19 Because ethnic data is not always readily available, this report includes an eGFR for both -Americans and non- Americans. The National Kidney Disease Education Program (NKDEP) does not endorse the use of the MDRD equation for patients that are not between the ages of 18 and 70, are , have extremes of body size, muscle mass, or nutritional status, or are non- or non-. According to the National Kidney Foundation, irrespective of diagnosis, the stage of the disease is based on the level of kidney function: Stage Description GFR(mL/min/1.73 m(2)) 1 Kidney damage with normal or decreased GFR 90 2 Kidney damage with mild decrease in GFR 60-89 3 Moderate decrease in GFR 30-59 4 Severe decrease in GFR 15-29 5 Kidney failure <15 (or dialysis) 20 THERAPEUTIC TARGET FOR THE TREATMENT OF DIABETES MELLITUS PATIENTS IS <7% HBA1C, AND IN SELECTIVE PATIENTS <6.0%. PLEASE REFER TO [place] [employer] DIABETIC CARE GUIDELINES FOR FURTHER INFORMATION. Procedures Date CPT Code Description Status 05/15/2017 42971 Carpal Tunnel Release Completed 05/15/2017 02243 Carpal Tunnel Release Completed 05/15/2017 37317 Excision Ganglion Wrist/ Dorsal Or Volar; Primary Completed 05/15/2017 25521 Excision Ganglion Wrist/ Dorsal Or Volar; Primary Completed 08/26/2014 Colonoscopy Completed 05/26/2014 66192 EKG Tracing & Interpretation Completed 11/10/2013 66044 EKG Tracing & Interpretation Completed 10/30/2013 61934 EKG, Interpretation Only Completed 10/28/2013 88181 EKG Tracing & Interpretation Completed 08/10/2013 78620 ECHO Stress Test Incl Perf Contiuous ekg Monitoring Completed W/Phys Superv 08/10/2013 82300 ECHO Stress Test Incl Perf Contiuous ekg Monitoring Completed W/Phys Superv 07/21/2013 88318 ECHO Transthoracic, Real-Time 2D With Doppler And Color Completed Flow 07/15/2013 66617 Event Monitor/Phys Review/Interp. Completed 07/14/2013 46726 Holter Monitor Review (24 hr)dr review & interp Completed only 07/08/2013 49225 EKG Tracing & Interpretation Completed 02/22/2013 54363 EEG Recording Awake & Drowsy Completed 05/04/2012 75793 Polysomnography Sleep Staging 4+ Parameters Completed Encounters Type Date Location Provider CPT E/M Dx Office Visit 04/04/2017 [place] [address] M67.432 1:15p [facility] Office Visit 01/01/2016 [place] [address] G43.109 11:00a [facility] Office Visit 12/11/2015 [place] [address] G43.109 4:00p [facility] Office Visit 11/14/2015 [place] [address] G43.109 3:00p [facility] Office Visit 05/26/2014 [facility] Maciej Flanagan 34396 458.0 4:20p Henrik Sanchez 780.79 Office Visit 11/10/2013 2:00p [facility] Maciej Sanchez 29149 780.79 Henrik 785.1 458.0 Office Visit 10/28/2013 9:30a [facility] GAVIN Napier 16081 458.0 780.2 785.0 Office Visit 08/30/2013 11:00a [facility] GAVIN Napier 61490 458.0 [facility] Office Visit 08/13/2013 8:40a [facility] Qutayb S. 02527 458.0 Henrik Sanchez 780.2 780.79 785.1 Office Visit 08/10/2013 2:30p [facility] Qutaybeh S. Deisiydlea, 63723 780.2 M.D. 780.79 785.1 785.0 427.61 458.0 Office Visit 07/08/2013 10:40a [facility] Qutaybeh S. Deisiydlea, 57430 780.2 M.D. 780.79 785.1 785.0 Office Visit 05/12/2012 11:33a Brody Skinner, 32845 327.23 [facility] Office Visit 04/14/2012 9:39a Brody Skinner, 73424 786.09 [facility] 780.79 Office Visit 05/14/2010 8:40a DO Not Use [facility] [place], 26147 790.21 Rosemarie Chester,FACP 244.9 327.23 780.79 Office Visit 01/17/2010 9:00a DO Not Use [facility] [place], 61443 785.6 Rosemarie Chester Office Visit 11/01/2009 4:00p DO Not Use [facility] [place], 86127 465.8 Rosemarie LAZO Office Visit 05/15/2009 11:40a DO Not Use [facility] [place], 73098 466.0 Rosemarie Chester,FACP 646.83 Office Visit 04/21/2009 9:00a DO Not Use [facility] [place], 86087 785.1 Rosemarie Chester,FACP 377.30 251.1 646.93 Plan of Care 05/02/2017 - Jericho Carlos, [id number] Ganglion, left wristFollow up:Follow up: 10-14 days [id number] Carpal tunnel syndrome, left upper limb
[2017-06-06 06:55] LABS: ABS Basophils 0 10^3/ul (0-0.2); ABS Eosinophils 0.1 10^3/ul (0-0.6); ABS Lymphocytes 1.5 10^3/ul (1.0-4.8); ABS Monocytes 0.4 10^3/ul (0-0.8); ABS Nucleated RBC 0 10^3/ul; Eosinophil % 3.2 % (0-6); Hematocrit 38 % (35-47); Hemoglobin 13.1 g/dl (12.0-16.0); Lymphocyte % 37.1 % (25-47); Mean Corpuscular HGB Conc 35 g/dl (31-36); Mean Corpuscular Hemoglobin 34 pg (27-31); Mean Corpuscular Volume 97 fL (80-97); Mean Platelet Volume 8 um3 (7.4-10.4); Nucleated Red Blood Cells % 0.1; Platelet Count 205 10^3/ul (150-450); Red Blood Count 3.91 10^6/ul (4.0-5.4); Red Cell Distribution Width 14 % (10.5-15)
[2017-06-06] MEDS ORDERED: Ondansetron TAB* 4 MG PO ONE (06:57)
[2017-06-06 07:10] LABS: EGFR Non-African American 96.3 (>60)
[2017-06-06 07:25] VITALS: BP 100/66
--- NOTE | 2017-06-06 19:15 | ED ---
Simon Lucero Nilda, scribed for Sofia Pool MD on 06/06/17 at 0637 . - HPI Summary HPI Summary: This patient is a 41 year old F presenting to [facility] with a chief complaint of needlestick puncture to thumb with butterfly needle while drawing blood from contact patient with MRSA. 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 HIV status of needle stick source is not known, per pt. The patient rates the pain 0/10 in severity. Symptoms aggravated and alleviated by nothing. Pt states she was bleeding underneath her glove and washed her hands 3x with soap and water s/p incident. - History of Current Complaint Chief Complaint: EDExposureBodyFluid Stated Complaint: NEEDLE STICK Time Seen by Provider: 06/06/17 06:01 Date of Incident: 06/06/17 Job Performing at Time of Incident: blood draw Needlestick: Other - butterfly needle Blood on Needle: Yes Depth of Needlestick: Puncture Bleeding at Site: Yes - bleeding under glove Body Fluid Exposure: Blood Treatment PER DIEM: Cleaned Wound - Source Information HIV: Unknown Hepatitis: Unknown PMH/Surg Hx/FS Hx/Imm Hx Endocrine/Hematology History: Reports: Hx Diabetes - GESTATIONAL ONLY Denies: Hx Thyroid Disease Cardiovascular History: Reports: Hx Hypertension - Orthostatic Hypotension, Hx Syncope - Neurocardiogenic syncope Denies: Hx Congestive Heart Failure, Hx Pacemaker/ICD, Other Cardiovascular Problems/Disorders Respiratory History: Reports: Hx Sleep Apnea - not since gastric sleeve Denies: Hx Asthma, Hx Chronic Obstructive Pulmonary Disease (COPD), Other Respiratory Problems/Disorders GI History: Reports: Hx Gastroesophageal Reflux Disease Denies: Hx Ulcer, Other GI Disorders History: Denies: Hx Dialysis, Hx Renal Disease, Other Problems/Disorders Sensory History: Reports: Hx Contacts or Glasses - glasses Denies: Hx Hearing Aid Opthamlomology History: Reports: Hx Contacts or Glasses - glasses Neurological History: Reports: Hx Headaches - hx of optic neuritis 2008, headaches since 1-2 times a week, improved, Hx Migraine, Other Neuro Impairments /Disorders - neuro cardiogenic syncope Denies: Hx Seizures Psychiatric History: Reports: Hx Anxiety - on medication, Hx Depression Denies: Hx Panic Disorder, Hx Substance Abuse - Surgical History Surgery Procedure, Year, and [place] [facility] [place] [facility] [place] W/TUBAL LIGATION. . gASTRIC SLEEVE AND CHOLECYTECTOMY 2006 Hx Anesthesia Reactions: Yes - nausea with one surgery, couldnt breath and throat swelling - Immunization History Date of Tetanus Vaccine: 2008 Date of Influenza Vaccine: 2012 Infectious Disease History: No Infectious Disease History: Denies: Hx Clostridium Difficile, Hx Hepatitis, Hx Human Immunodeficiency Virus (HIV), Hx of Known/Suspected MRSA, Hx Shingles, Hx Tuberculosis, Hx Known/ Suspected VRE, Hx Known/Suspected VRSA, History Other Infectious Disease, Traveled Outside the [place] in Last 30 Days - Family History Known Family History: Positive: Other - Breast cancer Negative: Hypertension, Diabetes - Social History Alcohol Use: Weekly Alcohol Amount: 3-4 per week Hx Substance Use: No Substance Use Type: Reports: None Hx Tobacco Use: Yes Smoking Status (MU): Former Smoker Amount Used/How Often: pack a day for15 yrs Review of Systems Negative: Shortness Of Breath Positive: Other - needlestick on left thumb All Other Systems Reviewed And Are Negative: Yes Physical Exam - Summary Physical Exam Summary: VITAL SIGNS: Reviewed. GENERAL: Patient is a well-developed and nourished female who is lying comfortable in the stretcher. Patient is not in any acute respiratory distress. HEAD AND FACE: No signs of trauma. No ecchymosis, hematomas or skull depressions. No sinus tenderness. EYES: PERRLA, EOMI x 2, No injected conjunctiva, no nystagmus. EARS: Hearing grossly intact. Ear canals and tympanic membranes are within normal limits. MOUTH: Oropharynx within normal limits. NECK: Supple, trachea is midline, no adenopathy, no JVD, no carotid bruit, no c- spine tenderness, neck with full ROM. CHEST: Symmetric, no tenderness at palpation LUNGS: Clear to auscultation bilaterally. No wheezing or crackles. CVS: Regular rate and rhythm, S1 and S2 present, no murmurs or gallops appreciated. ABDOMEN: Soft, non-tender. No signs of distention. No rebound no guarding, and no masses palpated. Bowel sounds are normal. EXTREMITIES: FROM in all major joints, no edema, no cyanosis or clubbing. NEURO: Alert and oriented x 3. No acute neurological deficits. Speech is normal and follows commands. SKIN: Dry and warm Triage Information Reviewed: Yes Vital Signs On Initial Exam: Initial Vitals Temp Pulse Resp BP Pulse Ox 98.1 F 77 16 98/66 97 06/06/17 05:52 06/06/17 05:52 06/06/17 05:52 06/06/17 05:52 06/06/17 05:52 Vital Signs Reviewed: Yes Diagnostics - Vital Signs Vital Signs Temp Pulse Resp BP Pulse Ox 06/06/17 05:52 98.1 F 77 16 98/66 97 - Laboratory Result Diagrams: 06/06/17 06:40 06/06/17 06:40 Lab Statement: Any lab studies that have been ordered have been reviewed, and results considered in the medical decision making process. 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 Exam unremarkable. Pt D/C with postexposure prophylaxis materials. - Diagnoses Provider Diagnoses: Employee exposure to body fluids Discharge - Discharge Plan Condition: Stable Disposition: HOME Patient Education Materials: Postexposure Prophylaxis (ED) Referrals: Josiah Mcintyre FIELD RADIO TECHNICIAN [Primary Care Provider] - 3 Days Additional Instructions: Follow up with Occupational Health. RETURN TO THE EMERGENCY DEPARTMENT FOR CHANGING OR WORSENING SYMPTOMS. The documentation as recorded by the Simon hicks Nilda accurately reflects the service I personally performed and the decisions made by , Sofia Pool MD.
== END 2017-06-06 07:23 | disposition home or self-care (01) ==
LOC: ED 05:43
DX: S61.032A Puncture wound without foreign body of left thumb without damage to nail, initial encounter (principal); Z77.21 Contact with and (suspected) exposure to potentially hazardous body fluids; W46.1XXA Contact with contaminated hypodermic needle, initial encounter; Y92.239 Unspecified place in hospital as the place of occurrence of the external cause; Z87.891 Personal history of nicotine dependence; Z86.79 Personal history of other diseases of the circulatory system
CPT/HCPCS: 36415; 80053; 84702; 85025; 86703; 86706; 86803; 87340; 99282; A9270-GY

== ENCOUNTER 2017-06-14 10:46 | Emergency (ER) | payer BC ==
--- NOTE | 2017-06-14 12:54 | ED ---
Influenza-Like Illness - HPI Summary HPI Summary: 41 female presents to ED with complaints of cough, fever/chills, nausea/vomiting /diarrhea, sore throat, body aches and nasal congestion. States symptoms began 3 days ago and worsened yesterday. Has been taking ibuprofen and ha seltzer. Last ibuprofen was around 0830 today. 1 episode of vomiting 2 days ago. Intermittent nausea. No recent travel. Had flu shot 2 times. Thinks she has the flu. No abdominal pain, chest pain or trouble breathing. Deep breaths makes her cough. Cough is mainly non productive. No PMHx. - History of Current Complaint Chief Complaint: EDFluSymptoms Hx Obtained From: Patient Onset/Duration: Sudden Onset, Lasting Days, Still Present, Worse Since Severity: Moderate Associated Signs & Symptoms: F/C, Myalgia, Cough, Sore Throat, Nasal Congestion , Headache, Vomiting, Diarrhea - Allergy/Home Medications Allergies/Adverse Reactions: Allergies Allergy/AdvReac Type Severity Reaction Status Date / Time citalopram Allergy Palpitation Verified 06/14/17 10:49 s fludrocortisone Allergy rash, Verified 06/14/17 10:49 palpatations, sweats midodrine Allergy rash, Verified 06/14/17 10:49 palpatations, lightheaded morphine Allergy Itching Verified 06/14/17 10:49 naproxen Allergy GI Upset Verified 06/14/17 10:49 oxycodone Allergy GI Upset Verified 06/14/17 10:49 Adhesive Tape [Plastic Tape] AdvReac Intermediate IRRITATES Verified 06/14/17 10 :49 SKIN terrazol Allergy Intermediate See Comment Uncoded 06/14/17 10:49 BENZOYL PEROXIDE Allergy Hives Uncoded 06/14/17 10:49 PMH/Surg Hx/FS Hx/Imm Hx Endocrine/Hematology History: Reports: Hx Diabetes - GESTATIONAL ONLY Denies: Hx Thyroid Disease Cardiovascular History: Reports: Hx Hypertension - Orthostatic Hypotension, Hx Syncope - Neurocardiogenic syncope Denies: Hx Congestive Heart Failure, Hx Pacemaker/ICD, Other Cardiovascular Problems/Disorders Respiratory History: Reports: Hx Sleep Apnea - not since gastric sleeve Denies: Hx Asthma, Hx Chronic Obstructive Pulmonary Disease (COPD), Other Respiratory Problems/Disorders GI History: Reports: Hx Gastroesophageal Reflux Disease Denies: Hx Ulcer, Other GI Disorders History: Denies: Hx Dialysis, Hx Renal Disease, Other Problems/Disorders Sensory History: Reports: Hx Contacts or Glasses - glasses Denies: Hx Hearing Aid Opthamlomology History: Reports: Hx Contacts or Glasses - glasses Neurological History: Reports: Hx Headaches - hx of optic neuritis 2008, headaches since 1-2 times a week, improved, Hx Migraine, Other Neuro Impairments /Disorders - neuro cardiogenic syncope Denies: Hx Seizures Psychiatric History: Reports: Hx Anxiety - on medication, Hx Depression Denies: Hx Panic Disorder, Hx Substance Abuse - Surgical History Surgery Procedure, Year, and Place: 02/05 [facility] - . 09/07 [facility] - C- section W/TUBAL LIGATION. . gASTRIC SLEEVE AND CHOLECYTECTOMY 2005 Hx Anesthesia Reactions: Yes - nausea with one surgery, couldnt breath and throat swelling - Immunization History Date of Tetanus Vaccine: 2008 Date of Influenza Vaccine: 2012 Immunizations Up to Date: Yes Infectious Disease History: No Infectious Disease History: Denies: Hx Clostridium Difficile, Hx Hepatitis, Hx Human Immunodeficiency Virus (HIV), Hx of Known/Suspected MRSA, Hx Shingles, Hx Tuberculosis, Hx Known/ Suspected VRE, Hx Known/Suspected VRSA, History Other Infectious Disease, Traveled Outside the [place] in Last 30 Days - Family History Known Family History: Positive: Unknown, Other - Breast cancer Negative: Hypertension, Diabetes - Social History Alcohol Use: Weekly Alcohol Amount: 3-4 per week Hx Substance Use: No Substance Use Type: Reports: None Hx Tobacco Use: Yes Smoking Status (MU): Former Smoker Amount Used/How Often: pack a day for15 yrs Review of Systems Positive: Fever, Chills, Fatigue Positive: Sore Throat, Nasal Discharge Cardiovascular: Negative Positive: Cough Positive: Vomiting, Diarrhea, Nausea Positive: Myalgia Skin: Negative Positive: Headache All Other Systems Reviewed And Are Negative: Yes Physical Exam Triage Information Reviewed: Yes Vital Signs On Initial Exam: Initial Vitals Temp Pulse Resp BP Pulse Ox 98.5 F 64 14 110/56 96 06/14/17 10:49 06/14/17 10:49 06/14/17 10:49 06/14/17 10:49 06/14/17 10:49 Vital Signs Reviewed: Yes Appearance: Positive: No Pain Distress, Well-Nourished, Ill-Appearing Skin: Positive: Warm, Skin Color Reflects Adequate Perfusion, Dry. Negative: Cold, Numb, Cyanosis @, Pale, Erythema @ Head/Face: Positive: Normal Head/Face Inspection Eyes: Positive: Conjunctiva Clear ENT: Positive: Hearing grossly normal, Pharynx normal, Nasal congestion, TMs normal, Uvula midline. Negative: Tonsillar swelling, Tonsillar exudate Neck: Positive: Supple, Nontender, No Lymphadenopathy Respiratory/Lung Sounds: Positive: Clear to Auscultation, Breath Sounds Present. Negative: Rales, Rhonchi, Wheezes Cardiovascular: Positive: Normal, RRR, Pulses are Symmetrical in both Upper and Lower Extremities. Negative: Murmur, Rub Abdomen Description: Positive: Nontender, Soft Bowel Sounds: Positive: Present Musculoskeletal: Positive: Normal, Strength/ROM Intact Neurological: Positive: Normal, Sensory/Motor Intact, Alert, Oriented to Person Place, Time Diagnostics - Vital Signs Vital Signs Temp Pulse Resp BP Pulse Ox 06/14/17 10:49 98.5 F 64 14 110/56 96 - Laboratory Lab Results: Lab Results 06/14/17 Range/Units 11:35 Influenza A (Rapid) Negative (Negative) Influenza B (Rapid) Negative (Negative) Lab Statement: Any lab studies that have been ordered have been reviewed, and results considered in the medical decision making process. Flu Symptom Course/Dx - Course Course Of Treatment: infleunza obtained and negative. normal vitals and physical exam otherwise. appears to be suffering from influenza like viral illness. suggested tamiflu patient agreed. symptomatic measures, rest fluids. no further concerns for different etiology at this time. aware of worsening signs and symptosm to watch out for. spoke about symptomatic measures for diarrhea, vomiting and nausea has mainyl subsided. follow up with pcp. - Diagnoses Differential Diagnosis/HQI/PQRI: Positive: Bronchitis, Influenza, Upper Respiratory Infection, Other - viral illness Provider Diagnoses: Viral syndrome Discharge - Discharge Plan Condition: Good Disposition: HOME Prescriptions: Oseltamivir CAP* [Tamiflu CAP*] 75 mg PO BID #10 cap Patient Education Materials: Viral Syndrome (ED) Referrals: Josiah Mcintyre, TERMITE CONTROL TECHNICIAN [Primary Care Provider] - Additional Instructions: Take tamiflu as directed to help decrease duration and symptoms severity of viral illness. Increase fluid intake. Continue tylenol/ibuprofen for fever/body aches. Increase fluid intake and get plenty of rest. Recommend over the counter cold/flu remedies, hot showers, humidifier and warm compresses over nose/sinuses. Salt water gargles and nasal saline rinses. Any new or worsening symptoms please seek medical attention. Follow up with PCP.
[2017-06-14 12:58] VITALS: BP 102/60
== END 2017-06-14 12:57 | disposition home or self-care (01) ==
LOC: ED 10:46
DX: B34.9 Viral infection, unspecified (principal); R05 Cough; R50.9 Fever, unspecified; J02.9 Acute pharyngitis, unspecified; R51 Headache; R19.7 Diarrhea, unspecified; Z87.891 Personal history of nicotine dependence; R11.2 Nausea with vomiting, unspecified
CPT/HCPCS: 87502; 99282

== ENCOUNTER 2017-10-26 11:50 | Emergency (ER) | payer BC ==
--- NOTE | 2017-10-26 12:16 | UC ---
Throat Pain/Nasal Juan HPI - HPI Summary HPI Summary: 42 yo female presents with flu like symptoms. She tells me that on 10/23 she began to feel tired and had a mild headache. The next day she felt nauseous and hot/cold all day. Yesterday began to have diffuse body aches and joint pain. Today feels the same. Has felt feverish, but has not taken her temperature. Has taken OTC ha-seltzer with no relief. Denies sick contacts. Denies cough, SOB, chest pain, abdominal pain, vomiting, diarrhea, dysuria. - History of Current Complaint Chief Complaint: UCRespiratory Stated Complaint: FLU SYMPTOMS Time Seen by Provider: 10/26/17 12:16 Hx Obtained From: Patient Hx Last Menstrual Period: 09/14/16 Onset/Duration: Gradual Onset Severity: Severe Pain Intensity: 8 Pain Scale Used: 0-10 Numeric - Allergies/Home Medications Allergies/Adverse Reactions: Allergies Allergy/AdvReac Type Severity Reaction Status Date / Time citalopram Allergy Palpitation Verified 10/26/17 12:07 s fludrocortisone Allergy rash, Verified 10/26/17 12:07 palpatations, sweats midodrine Allergy rash, Verified 10/26/17 12:07 palpatations, lightheaded morphine Allergy Itching Verified 10/26/17 12:07 naproxen Allergy GI Upset Verified 10/26/17 12:07 oxycodone Allergy GI Upset Verified 10/26/17 12:07 Adhesive Tape [Plastic Tape] AdvReac Intermediate IRRITATES Verified 10/26/17 12 :07 SKIN terrazol Allergy Intermediate See Comment Uncoded 10/26/17 12:07 BENZOYL PEROXIDE Allergy Hives Uncoded 10/26/17 12:07 PMH/Surg Hx/FS Hx/Imm Hx - Additional Past Medical History Additional PMH: Headaches GI/ History: Gastroesophageal Reflux Psychological History: Anxiety, Depression - Surgical History Surgical History: Yes Surgery Procedure, Year, and Place: 02/05 [facility] - . 09/07 [facility] - C- section W/TUBAL LIGATION. . gASTRIC SLEEVE AND CHOLECYTECTOMY 2005 - Family History Known Family History: Positive: Unknown, Other - Breast cancer Negative: Hypertension, Diabetes - Social History Occupation: Employed Full-time Lives: With Family Alcohol Use: Weekly Alcohol Amount: 3-4 per week Substance Use Type: None Smoking Status (MU): Former Smoker Amount Used/How Often: pack a day for15 yrs When Did the Patient Quit Smoking/Using Tobacco: 2006 - Immunization History Most Recent Influenza Vaccination: 2011 Most Recent Tetanus Shot: 2004 Review of Systems Constitutional: Chills, Fatigue, Other - Body aches Skin: Negative Eyes: Negative ENT: Sore Throat Respiratory: Negative Cardiovascular: Negative Gastrointestinal: Nausea Genitourinary: Negative Neurovascular: Negative Neurological: Negative Psychological: Negative All Other Systems Reviewed And Are Negative: Yes Physical Exam - Summary Physical Exam Summary: GENERAL: Mildly ill appearing. No pain distress. SKIN: No rashes, sores, lesions, or open wounds. HEENT: Head: AT/NC Eyes: EOM intact. Conjunctiva clear without inflammation or discharge. Ears: Hearing grossly normal. TMs intact, no bulging, erythema, or edema. Nose: Nasal mucosa pink and moist. NTTP maxillary and frontal sinus. Throat: Posterior oropharynx without exudates, erythema, or tonsillar enlargement. Uvula midline. NECK: Supple. Nontender. No lymphadenopathy. CHEST: CTAB. No r/r/w. No accessory muscle use. Breathing comfortably and in no distress. CV: RRR. Without m/r/g. Pulses intact. Brisk cap refill. NEURO: Alert. CN II-XII grossly intact. PSYCH: Age appropriate behavior. Triage Information Reviewed: Yes Vital Signs: Initial Vital Signs Temp 99.1 F 10/26/17 12:01 Pulse 71 10/26/17 12:01 Resp 18 10/26/17 12:01 BP 90/48 10/26/17 12:01 Pulse Ox 100 10/26/17 12:01 Laboratory Tests 10/26/17 10/26/17 10/26/17 12:34 12:39 12:44 WBC RBC Hgb Hct MCV MCH MCHC RDW Plt Count MPV Neut % (Auto) Lymph % (Auto) [place] % (Auto) Eos % (Auto) Baso % (Auto) Absolute Neuts (auto) Absolute Lymphs (auto) Absolute Monos (auto) Absolute Eos (auto) Absolute Basos (auto) Absolute Nucleated RBC Nucleated RBC % POC Urine Color Dark yellow POC Urine Clarity Cloudy POC Urine pH 7.0 POC Ur Specif Archie 1.020 POC Urine Protein Negative POC Ur Glucose (UA) Negative POC Urine Ketones Negative POC Urine Blood Negative POC Urine Nitrite Negative POC Urine Bilirubin Negative POC Urine Urobilinogen 1.0 POC U Leukocyte Esteras Negative POC Ur Test Negative Monoscreen Influenza A (Rapid) Negative Influenza B (Rapid) Negative 10/26/17 13:17 WBC 5.2 RBC 3.84 L Hgb 12.7 Hct 38 MCV 98 H MCH 33 H MCHC 34 RDW 14 Plt Count 204 MPV 8.7 Neut % (Auto) 60.7 Lymph % (Auto) 25.9 [place] % (Auto) 9.0 H Eos % (Auto) 3.6 Baso % (Auto) 0.8 Absolute Neuts (auto) 3.2 Absolute Lymphs (auto) 1.3 Absolute Monos (auto) 0.5 Absolute Eos (auto) 0.2 Absolute Basos (auto) 0 Absolute Nucleated RBC 0 Nucleated RBC % 0.2 POC Urine Color POC Urine Clarity POC Urine pH POC Ur Specif Archie POC Urine Protein POC Ur Glucose (UA) POC Urine Ketones POC Urine Blood POC Urine Nitrite POC Urine Bilirubin POC Urine Urobilinogen POC U Leukocyte Esteras POC Ur Test Monoscreen Negative Influenza A (Rapid) Influenza B (Rapid) Vital Signs: Temp Pulse Resp BP Pulse Ox 98.6 F 61 18 101/60 99 10/26/17 14:33 10/26/17 14:33 10/26/17 14:33 10/26/17 14:33 10/26/17 14:33 Vital Signs Reviewed: Yes Throat Pain/Nasal Course/Dx - Course Course Of Treatment: UA negative. Preg negative. Flu negative. Pt was given 600mg ibuprofen. 4mg Zofran. 1L of NS. Labs were drawn for CBC, mono, and lyme. Labs returned while pt was getting fluids - mono negative and CBC with mild macrocytic anemia, likely Vit B12 def due to her hx of gastric surgery. Pt felt a little better after treatment. Will dc with dx of viral illness and have her f /u with her PCP if her symptoms persist or go to ED if symptoms worsen. - Differential Dx/Diagnosis Provider Diagnoses: Viral illness Discharge - Sign-Out/Discharge Documenting (check all that apply): Patient Departure - Discharge Plan Condition: Stable Disposition: HOME Patient Education Materials: Viral Syndrome (ED) Forms: *Work Release Referrals: Josiah Mcintyre NP [Primary Care Provider] - Additional Instructions: If you develop a fever, shortness of breath, chest pain, new or worsening symptoms - please call your PCP or go to the ED. - Billing Disposition and Condition Condition: STABLE Disposition: Home
[2017-10-26] MEDS ORDERED: Ibuprofen TAB* 600 MG PO ONE (12:23)
[2017-10-26] MEDS ORDERED: NS 0.9% 1000 ML* 1,000 ML IV ONE (13:01)
[2017-10-26] MEDS ORDERED: Ondansetron ODT TAB* 4 MG PO ONE (13:01)
[2017-10-26 14:32] LABS: ABS Basophils 0 10^3/ul (0-0.2); ABS Eosinophils 0.2 10^3/ul (0-0.6); ABS Lymphocytes 1.3 10^3/ul (1.0-4.8); ABS Monocytes 0.5 10^3/ul (0-0.8); ABS Neutrophils 3.2 10^3/ul (1.5-7.7); ABS Nucleated RBC 0 10^3/ul; Eosinophil % 3.6 % (0-6); Hematocrit 38 % (35-47); Hemoglobin 12.7 g/dl (12.0-16.0); Lymphocyte % 25.9 % (25-47); Mean Corpuscular HGB Conc 34 g/dl (31-36); Mean Corpuscular Hemoglobin 33 pg (27-31); Mean Corpuscular Volume 98 fL (80-97); Mean Platelet Volume 8.7 um3 (7.4-10.4); Nucleated Red Blood Cells % 0.2; Platelet Count 204 10^3/ul (150-450); Red Blood Count 3.84 10^6/ul (4.00-5.40); Red Cell Distribution Width 14 % (10.5-15); White Blood Count 5.2 10^3/ul (3.5-10.8)
[2017-10-26 14:33] VITALS: BP 101/60
--- NOTE | 2017-10-27 08:51 | UC ---
- Progress Note Progress Note: CBC reviewed and non concerning no change 10/27/18 Discharge - Sign-Out/Discharge Documenting (check all that apply): Patient Departure - Discharge Plan Condition: Stable Disposition: HOME Patient Education Materials: Viral Syndrome (ED) Forms: *Work Release Referrals: Josiah Mcintyre DINKEY ENGINE FIRER [Primary Care Provider] - Additional Instructions: If you develop a fever, shortness of breath, chest pain, new or worsening symptoms - please call your PCP or go to the ED. - Billing Disposition and Condition Condition: STABLE Disposition: Home
== END 2017-10-26 14:33 | disposition home or self-care (01) ==
LOC: UCEAST 11:50
DX: B34.9 Viral infection, unspecified (principal); R51 Headache; Z88.8 Allergy status to other drugs, medicaments and biological substances; Z88.5 Allergy status to narcotic agent; Z88.6 Allergy status to analgesic agent; Z91.048 Other nonmedicinal substance allergy status; Z87.891 Personal history of nicotine dependence
CPT/HCPCS: 36415; 81003; 84702; 85025; 86308; 86618; 86664; 86665; 96360; 99212; A9270-GY; G0463

== ENCOUNTER 2018-09-24 12:16 | Emergency (ER) | payer BC ==
[2018-09-24 12:30] VITALS: BP 124/69
--- NOTE | 2018-09-24 12:44 | UC ---
UC General HPI - HPI Summary HPI Summary: Concern for strep throat - daughter recently diagnosed. Past few days c/o sore throat, no congestion. Mild cough. Subjective fevers. Teeth and gums hurt. + nausea and headache. Meds: reviewed - History of Current Complaint Chief Complaint: UCGeneralIllness Stated Complaint: SORE THROAT Time Seen by Provider: 09/24/18 12:22 Hx Last Menstrual Period: [id number] Pain Intensity: 7 - Allergy/Home Medications Allergies/Adverse Reactions: Allergies Allergy/AdvReac Type Severity Reaction Status Date / Time citalopram Allergy Palpitation Verified 09/24/18 12:31 s fludrocortisone Allergy rash, Verified 09/24/18 12:31 palpatations, sweats midodrine Allergy rash, Verified 09/24/18 12:31 palpatations, lightheaded morphine Allergy Itching Verified 09/24/18 12:31 naproxen Allergy GI Upset Verified 09/24/18 12:31 oxycodone Allergy GI Upset Verified 09/24/18 12:31 Adhesive Tape [Plastic Tape] AdvReac Intermediate IRRITATES Verified 09/24/18 12 :31 SKIN terrazol Allergy Intermediate See Comment Uncoded 09/24/18 12:31 BENZOYL PEROXIDE Allergy Hives Uncoded 09/24/18 12:31 Home Medications: Home Medications FLUoxetine CAP* [Prozac CAP*] 10 mg PO DAILY 09/24/18 [History Confirmed ] PMH/Surg Hx/FS Hx/Imm Hx Previously Healthy: Yes - Surgical History Surgical History: Yes Surgery Procedure, Year, and [place] [facility] [place] [facility] [place] W/TUBAL LIGATION. . gASTRIC SLEEVE AND CHOLECYTECTOMY 2006 - Family History Known Family History: Positive: Other - Breast cancer Negative: Hypertension, Diabetes - Social History Alcohol Use: Weekly Alcohol Amount: 3-4 per week Substance Use Type: None Smoking Status (MU): Former Smoker Amount Used/How Often: pack a day for15 yrs When Did the Patient Quit Smoking/Using Tobacco: 2006 - Immunization History Most Recent Influenza Vaccination: 2011 Most Recent Tetanus Shot: 2004 Review of Systems All Other Systems Reviewed And Are Negative: Yes ENT: Positive: Sore Throat Respiratory: Positive: Cough Physical Exam Triage Information Reviewed: Yes Appearance: Well-Appearing Vital Signs: Initial Vital Signs Temp 97.4 F 09/24/18 12:26 Pulse 75 09/24/18 12:26 Resp 18 09/24/18 12:26 BP 124/69 09/24/18 12:26 Pulse Ox 98 09/24/18 12:26 Vital Signs Reviewed: Yes ENT: Positive: Pharyngeal erythema, TMs normal Neck: Positive: Supple, Tenderness @ - anterior cervical chain Respiratory: Positive: Lungs clear, Normal breath sounds Cardiovascular: Positive: RRR, No Murmur Course/Dx - Course Course Of Treatment: This is a 42 yr old with sore throat Assessment Rapid strep: negative Nontoxic appearing Plan Continue supportive care Continue ibuprofen as needed for pain/fever as directed If symptoms persist or worsen, recommend follow up with PCP or return to urgent care - Diagnoses Provider Diagnosis: Pharyngitis Discharge - Sign-Out/Discharge Documenting (check all that apply): Patient Departure All imaging exams completed and their final reports reviewed: No Studies - Discharge Plan Condition: Good Disposition: HOME Patient Education Materials: Pharyngitis (ED) Referrals: Betina Parada MD [Primary Care Provider] - Additional Instructions: Continue supportive care Continue ibuprofen as needed for pain/fever as directed If symptoms persist or worsen, recommend follow up with PCP or return to urgent care - Billing Disposition and Condition Condition: GOOD Disposition: Home
== END 2018-09-24 12:50 | disposition home or self-care (01) ==
LOC: UCEAST 12:16
DX: J02.9 Acute pharyngitis, unspecified (principal); Z20.828 Contact with and (suspected) exposure to other viral communicable diseases; Z87.891 Personal history of nicotine dependence
CPT/HCPCS: 87651; 99201; G0463

== ENCOUNTER 2023-12-20 15:56 | Observation (INO) ==
[2023-12-20 16:25] LABS: ABS Eosinophils 0.1 10^3/uL (0.0-0.5); ABS Lymphocytes 2.5 10^3/uL (1.0-4.8); ABS Monocytes 0.4 10^3/uL (0.0-0.9); ABS Neutrophils 2.7 10^3/uL (1.5-7.6); ABS Nucleated RBC 0.01 10^3/ul; Eosinophil % 1.3 %; Hematocrit 38.3 % (35-45); Hemoglobin 12.9 g/dL (11.5-14.3); Lymphocyte % 43.4 %; Mean Corpuscular Hemoglobin 32.5 pg (27-33); Mean Corpuscular Hgb Conc 33.5 g/dL (31-36); Mean Corpuscular Volume 96.8 fL (80-97); Mean Platelet Volume 7.4 fL (7.5-11.2); Nucleated Red Blood Cells % 0.2 %/100WBC (0.0-0.8); Platelet Count 279 10^3/uL (150-450); Red Blood Count 3.96 10^6/uL (3.63-4.92); Red Cell Distribution Width 14.2 % (12-17); White Blood Count 5.7 10^3/uL (3.8-11.8)
[2023-12-20 16:33] LABS: Activated Partial Thrombo Time 28.4 seconds (26.0-38.0); INR 0.88 (0.85-1.14)
[2023-12-20] MEDS: NS 0.9% 1000 ml BAG 1,000 ML IV ONE (16:41)
[2023-12-20 16:51] LABS: High Sens Troponin Baseline < 3 pg/mL (<15)
[2023-12-20 17:03] LABS: ALT 16 U/L (7-52); AST 15 U/L (13-39); Albumin 4.4 g/dL (3.2-5.2); Albumin/Globulin Ratio 2.2 (1-3); Alkaline Phosphatase 40 U/L (35-149); Anion Gap 9 mmol/L (2-16); Blood Urea Nitrogen 17 mg/dL (6-24); CO2 Carbon Dioxide 29 mmol/L (22-32); Calcium 9.5 mg/dL (8.6-10.3); Chloride 99 mmol/L (101-111); Cholesterol 179 mg/dL; Creatinine, Serum 0.87 mg/dL (0.51-0.95); Glucose 83 mg/dL (70-100); HDL Cholesterol 73.6 mg/dL; Indirect Bilirubin 0.3 mg/dL (0.3-1.0); LDL Cholesterol 82 mg/dL; Potassium 4.3 mmol/L (3.5-5.0); Sodium 137 mmol/L (135-145); Total Bilirubin 0.3 mg/dL (0.2-1.0); Total Protein 6.4 g/dL (6.4-8.9); Triglycerides 117 mg/dL; eGFR CKD-EPI 83.2 (>60)
[2023-12-20 17:32] LABS: Alcohol, S < 13 mg/dL (<13)
[2023-12-20 17:53] LABS: Venous Bicarbonate HCO3 23.6 mmol/L (24-28)
[2023-12-20 18:03] LABS: Urine Appearance Clear; Urine Bilirubin Negative (Negative); Urine Blood Negative (Negative); Urine Color Light-Yellow; Urine Glucose Negative (Negative); Urine Ketones 1+ (Negative); Urine Nitrite Negative (Negative); Urine Protein Trace (Negative); Urine Specific Gravity >1.050 (1.002-1.030); Urine Urobilinogen Negative (Negative)
[2023-12-20] MEDS: Ondansetron 4 mg VIAL 2 MG/ML 2 ml VIAL IV ONE (18:08)
[2023-12-20] MEDS: Acetaminophen IV 1 GM/100ML 1,000 MG/100 ML BAG IV ONE (18:08)
[2023-12-20 18:19] LABS: Urine Benzodiazepine Screen None Detected (None Detect); Urine Cannabinoids Screen None Detected (None Detect); Urine Opiates Screen None Detected (None Detect)
[2023-12-20 18:26] LABS: High Sensitivity Troponin 1 Hr < 3 pg/mL (<15)
[2023-12-20 18:38] LABS: C Reactive Protein < 1.00 mg/L (<8.01)
[2023-12-20] MEDS: Magnesium Sulfate 2 gm BAG 2 GM/50 ML BAG IVPB ONE (19:42)
[2023-12-20 20:16] LABS: Erythrocyte Sed Rate 3 mm/Hr (0-19)
[2023-12-21 09:39] LABS: ABS Eosinophils 0.1 10^3/uL (0.0-0.5); ABS Lymphocytes 1.4 10^3/uL (1.0-4.8); ABS Monocytes 0.3 10^3/uL (0.0-0.9); Eosinophil % 2.7 %; Hematocrit 36.8 % (35-45); Hemoglobin 12.6 g/dL (11.5-14.3); Mean Corpuscular Hemoglobin 33.3 pg (27-33); Mean Corpuscular Hgb Conc 34.3 g/dL (31-36); Mean Corpuscular Volume 97.1 fL (80-97); Mean Platelet Volume 7.3 fL (7.5-11.2); Platelet Count 248 10^3/uL (150-450); Red Blood Count 3.78 10^6/uL (3.63-4.92); White Blood Count 3.8 10^3/uL (3.8-11.8)
[2023-12-21 10:20] LABS: Calcium 9.1 mg/dL (8.6-10.3); Creatinine, Serum 0.79 mg/dL (0.51-0.95); Magnesium 2.1 mg/dL (1.9-2.7); eGFR CKD-EPI 93.4 (>60)
[2023-12-21] MEDS: Metoclopramide 5 MG/ML VIAL (10 mg) IV ONE (11:38)
[2023-12-22 05:27] VITALS: BP 81/67
== END 2023-12-22 14:14 | disposition home or self-care (01) ==
LOC: ED 15:56 → EDHOLD 15:56 → SUATTDRO 19:27 → EDHOLD 21:38 → MEDTELE 21:59
PROVIDERS: ADMIT Internal Medicine; ATTEND Internal Medicine